=== PATIENT | female | born 1955 | race Asian ===

== ENCOUNTER 2023-11-01 23:15 | Emergency (ER) | payer MEDICAID, OTHER ==
[~2023-11-01] VITALS: Ht 152.4 cm; Wt 56.7 kg
[2023-11-01 23:29] VITALS: BP_SYST 150; PULSE 75; RESP 18; TEMP 97.1; O2SAT 98
[2023-11-02] MEDS ORDERED: AUG875 PO (00:08)
[2023-11-02] MEDS: DIPHTH,PERTUSS(ACELL),TET VAC 0.5 ML VIAL (Tdap) I.M. ONE (00:12)
[2023-11-02 00:33] VITALS: BP_SYST 150; PULSE 75; RESP 18; TEMP 97.1; O2SAT 98
== END 2023-11-02 00:28 | disposition home or self-care (01) ==
LOC: SED 23:15
DX: S61.211A Laceration without foreign body of left index finger without damage to nail, initial encounter (principal); Z23 Encounter for immunization; I10 Essential (primary) hypertension; W53.21XA Bitten by squirrel, initial encounter; Y93.89 Activity, other specified; Y92.89 Other specified places as the place of occurrence of the external cause; Y99.8 Other external cause status
CPT/HCPCS: 90715; 99283